=== PATIENT | male | born 1970 | race Two or more races ===

== ENCOUNTER 2024-01-18 13:38 | Outpatient (AMB) | payer OTHER, SELFPAY ==
--- NOTE | 2024-01-18 13:47 | HO.NEPHOV ---
Vital Signs 01/18/24 13:54 Height 6 ft 1 in Weight 199 lb BMI 26.3 BP 90/60 Blood Pressure Location Lt brachial Position Sitting Pulse 80 Pulse Source Pulse Oximeter Pulse Oximetry (%) 98 Oxygen Delivery Method Room Air Intake Visit Reasons: CKD and recurrent Gout on Allopurinol-Conf Labor Representative Required: No Accompanied by: Self / Same As Patient Allergies ibuprofen Allergy (Verified 01/14/24 12:26) Rash HPI Comments Details: I had the pleasure of seeing Brendan in consultation for chronic kidney disease. He has history of biventricular heart failure as well as some ischemic cardiomyopathy and diabetes mellitus with CKD. He has history of coronary artery bypass grafting in 2007 and has a defibrillator in place. He has CardioMEMS and is being closely followed up in the [facility] failure [facility]. He has been having recurrent attacks of gout needing prednisone. His blood sugar control is not optimal. His last serum creatinine was close to 2.4. His last A1c was 11.6 with a TSH of 9.98. His serum calcium, potassium and serum bicarbonate are within acceptable range. He is not sure what his recent serum uric acid level was. He is on Jardiance, torsemide, spironolactone, carvedilol as well as Entresto. He is not very compliant with a diet. He denies any nausea, vomiting, diarrhea, proximal nocturnal dyspnea, orthopnea, worsening pedal edema. He is bothered by his recurrent exacerbation of gout. Does not have any epistaxis, photosensitivity, skin rashes or orthostatic symptoms. 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 Biventricular heart failure Anxiety Surgical History (Updated 01/18/24 @ 13:50 by Crystal Welch MA) H/O elbow surgery Hx of CABG H/O colonoscopy Family History (Updated 01/18/24 @ 13:50 by Crystal Welch MA) Paternal Grandmother Cancer Maternal Grandmother Heart disease Father Diabetes Brother Diabetes Social History (Updated 01/18/24 @ 13:49 by Crystal Welch MA) Alcohol intake: current Comment: Socially Patient Tobacco Use Status: Former Tobacco user Review of Systems Const All systems reviewed & are unremarkable except as noted in HPI and below Physical Exam Vital Signs: Last Vital Signs Pulse 80 01/18/24 13:54 BP 90/60 01/18/24 13:54 Pulse Ox 98 01/18/24 13:54 Oxygen Delivery Method Room Air 01/18/24 13:54 BMI result Body Mass Index 26.3 Const General: comfortable and no acute distress Orientation/consciousness: patient oriented x3 HEENT Head: Yes normocephalic Mouth: Normal oral and palatal mucosa present Eyes EOM: EOMs intact bilaterally Neck Neck: Yes supple Resp Auscultation: clear to auscultation bilaterally Cardio Jugular venous distension: no JVD Rate: regular rate GI Palpation (GI): Soft to palpation Auscultation: normal bowel sounds General: Yes no CVA tenderness Back/Spine/Pelvis Back: no CVA tenderness Skin General skin exam: no rashes or lesions noted Neuro General: patient oriented x3 and moves all extremities Extrem General: Yes no pedal edema Results Reviewed Nephrology Results: No Data to Display Assessment & Plan Assessment & Plan (1) Type 2 diabetes mellitus with chronic kidney disease: Code(s): E11.22 - Type 2 diabetes mellitus with diabetic chronic kidney disease Category: Medical Qualifiers: Diabetes mellitus rodent exterminator insulin use: with custodial use Chronic kidney disease stage: stage 4 (severe) Qualified Code(s): E11.22 - Type 2 diabetes mellitus with diabetic chronic kidney disease; N18.4 - Chronic kidney disease, stage 4 (severe); Z79.4 - superintendent terminal (current) use of insulin (2) Chronic kidney disease (CKD) stage G3b/A3, moderately decreased glomerular filtration rate (GFR) between 30-44 mL/min/1.73 square meter and albuminuria creatinine ratio greater than 300 mg/g: Code(s): N18.32 - Chronic kidney disease, stage 3b Category: Medical Plan Brendan has a chronic kidney disease due to diabetic nephropathy. He also might have had loss of GFR due to cardiorenal syndrome when he had heart failure exacerbations. His serum creatinine is fairly stable now. His volume status is optimal as he is on diuretics, dose of which has been adjusted with the help CardioMEMS. He is not known to have any amyloidosis. He is tolerating allopurinol 100 mg once daily. He has got exacerbations are most likely due to poor GFR and diuretics. I have ordered repeat uric acid levels along with other blood work. We may have to start him on Uloric. He needs to keep his hemoglobin A1c under 7. All these have been explained in great detail. Time spent retrieving all his data from [facility], patient encounter and documentation included 61 minutes. Answered all questions and follow-up was given Orders: Orders Uric Acid 3 Months E11.22 - Type 2 diabetes mellitus with diabetic chronic kidney disease, N18.32 - Chronic kidney disease, stage 3b Vitamin D 25-OH Total 3 Months E11.22 - Type 2 diabetes mellitus with diabetic chronic kidney disease, N18.32 - Chronic kidney disease, stage 3b Immunofixation Pnl, Serum 3 Months E11.22 - Type 2 diabetes mellitus with diabetic chronic kidney disease, N18.32 - Chronic kidney disease, stage 3b Protein Creatinine Ratio, Ur 3 Months E11. - Type 2 diabetes mellitus with diabetic chronic kidney disease, N18.32 - Chronic kidney disease, stage 3b Immunofixation, Random Urine 3 Months E11.22 - Type 2 diabetes mellitus with diabetic chronic kidney disease, N18.32 - Chronic kidney disease, stage 3b Creatinine 3 Months E11.22 - Type 2 diabetes mellitus with diabetic chronic kidney disease, N18.32 - Chronic kidney disease, stage 3b Blood Urea Nitrogen 3 Months E11.22 - Type 2 diabetes mellitus with diabetic chronic kidney disease, N18.32 - Chronic kidney disease, stage 3b Electrolytes 3 Months E11.22 - Type 2 diabetes mellitus with diabetic chronic kidney disease, N18.32 - Chronic kidney disease, stage 3b Calcium 3 Months E11.22 - Type 2 diabetes mellitus with diabetic chronic kidney disease, N18.32 - Chronic kidney disease, stage 3b Parathyroid Hormone Intact 3 Months E11.22 - Type 2 diabetes mellitus with diabetic chronic kidney disease, N18.32 - Chronic kidney disease, stage 3b Coding Level of Care Code New Pt Level 5 (45514) Diagnoses Type 2 diabetes mellitus with stage 4 chronic kidney disease, with long-term current use of insulin E11.; N18.4; Z79.4 Diabetes mellitus rodent exterminator insulin use: with custodial use Chronic kidney disease stage: stage 4 (severe) Chronic kidney disease (CKD) stage G3b/A3, moderately decreased glomerular filtration rate (GFR) between 30-44 mL/min/1.73 square meter and albuminuria creatinine ratio greater than 300 mg/g N18.32
[2024-01-18 13:54] VITALS: BP 90/60; PULSE 80; O2SAT 98; BMI 26.3
== END 2024-01-18 14:34 | disposition home or self-care (01) ==
PROVIDERS: PCP Internal Medicine; Referring Provider Internal Medicine; Visit Provider Internal Medicine Nephrology
DX: E11.22 Type 2 diabetes mellitus with diabetic chronic kidney disease (principal); N18.4 Chronic kidney disease, stage 4 (severe); Z79.4 Long term (current) use of insulin; N18.32 Chronic kidney disease, stage 3b
CPT/HCPCS: 99205

== ENCOUNTER → 2024-01-18 13:38 | Outpatient (BNVA) | payer OTHER, SELFPAY | PROVIDERS: PCP Internal Medicine; Referring Provider Internal Medicine; Visit Provider Internal Medicine Nephrology | DX: E11.22 Type 2 diabetes mellitus with diabetic chronic kidney disease (principal); N18.4 Chronic kidney disease, stage 4 (severe); I50.9 Heart failure, unspecified; Z95.1 Presence of aortocoronary bypass graft; Z79.4 Long term (current) use of insulin; Z79.899 Other long term (current) drug therapy | CPT/HCPCS: 99202 ==

== ENCOUNTER 2024-04-18 09:46 | Outpatient (AMB) | payer OTHER, SELFPAY ==
--- NOTE | 2024-04-18 09:54 | HO.NEPHOV_ITS ---
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 He has history of biventricular heart failure as well as some ischemic cardiomyopathy and diabetes mellitus with CKD. He has history of coronary artery bypass grafting in 2007 and has a defibrillator in place. He has CardioMEMS and is being closely followed up in the Heart failure Clinic. He has been having recurrent attacks of gout needing prednisone. His blood sugar control is not optimal. His last serum creatinine was close to 2.4. His serum calcium, potassium and serum bicarbonate are within acceptable range. He is not sure what his recent serum uric acid level was. He is on Jardiance, torsemide, spironolactone, carvedilol as well as Entresto. He is not very compliant with a diet. He denies any nausea, vomiting, diarrhea, proximal nocturnal dyspnea, orthopnea, worsening pedal edema. He is bothered by his recurrent exacerbation of gout. Does not have any epistaxis, photosensitivity, skin rashes or orthostatic symptoms. 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 Biventricular heart failure Anxiety Surgical History H/O elbow surgery Hx of CABG H/O colonoscopy Family History Paternal Grandmother Cancer Maternal Grandmother Heart disease Father Diabetes Brother Diabetes Social History Alcohol intake: current Comment: Socially Patient Tobacco Use Status: Former Tobacco user Review of Systems Const All systems reviewed & are unremarkable except as noted in HPI and below Physical Exam Vital Signs: Last Vital Signs Pulse 64 04/18/24 09:57 BP 90/50 L 04/18/24 09:57 Pulse Ox 95 04/18/24 09:57 Oxygen Delivery Method Room Air 04/18/24 09:57 BMI result Body Mass Index 28.0 Const General: comfortable and no acute distress Orientation/consciousness: patient oriented x3 HEENT Head: Yes normocephalic Mouth: Normal oral and palatal mucosa present Eyes EOM: EOMs intact bilaterally Neck Neck: Yes supple Resp Auscultation: clear to auscultation bilaterally Cardio Jugular venous distension: no JVD Rate: regular rate GI Palpation (GI): Soft to palpation Auscultation: normal bowel sounds General: Yes no CVA tenderness Back/Spine/Pelvis Back: no CVA tenderness Skin General skin exam: no rashes or lesions noted Neuro General: patient oriented x3 and moves all extremities Extrem General: Yes no pedal edema Results Reviewed Nephrology Results: No Data to Display Assessment & Plan Assessment & Plan (1) Vitamin D deficiency: Code(s): E55.9 - Vitamin D deficiency, unspecified Category: Medical (2) Secondary hyperparathyroidism (of renal origin): Code(s): N25.81 - Secondary hyperparathyroidism of renal origin Category: Medical (3) Chronic kidney disease (CKD) stage G3b/A3, moderately decreased glomerular filtration rate (GFR) between 30-44 mL/min/1.73 square meter and albuminuria creatinine ratio greater than 300 mg/g: Code(s): N18.32 - Chronic kidney disease, stage 3b Category: Medical (4) Type 2 diabetes mellitus with chronic kidney disease: Code(s): E11.22 - Type 2 diabetes mellitus with diabetic chronic kidney disease Category: Medical Qualifiers: Diabetes mellitus shelter insulin use: with shelter use Chronic kidney disease stage: stage 4 (severe) Qualified Code(s): E11.22 - Type 2 diabetes mellitus with diabetic chronic kidney disease; N18.4 - Chronic kidney disease, stage 4 (severe); Z79.4 - group home (current) use of insulin Plan Brendan has a chronic kidney disease due to diabetic nephropathy. He also might have had loss of GFR due to cardiorenal syndrome when he had heart failure exacerbations. His serum creatinine is fairly stable now. I asked him to cut back torsemide one tablet every other day for a week and back to usual dose after that. His volume status is optimal as he is on diuretics, dose of which has been adjusted with the help CardioMEMS. He is not known to have any amyloidosis. I increased allopurinol to 200 mg once daily. He has got exacerbations are most likely due to poor GFR and diuretics. I have ordered repeat uric acid levels along with other blood work. We may have to start him on Uloric. He needs to keep his hemoglobin A1c under 7. I also started him on VItamin D [id number] U once a week. Answered all questions and follow-up was given Orders: Orders Creatinine 3 Months E11.22 - Type 2 diabetes mellitus with diabetic chronic kidney disease, E55.9 - Vitamin D deficiency, unspecified, N18.32 - Chronic kidney disease, stage 3b, N18.4 - Chronic kidney disease, stage 4 (severe), N25.81 - Secondary hyperparathyroidism of renal origin, Z79.4 - marine oil terminal superintendent (current) use of insulin Blood Urea Nitrogen 3 Months E11.22 - Type 2 diabetes mellitus with diabetic chronic kidney disease, E55.9 - Vitamin D deficiency, unspecified, N18.32 - Chronic kidney disease, stage 3b, N18.4 - Chronic kidney disease, stage 4 (severe), N25.81 - Secondary hyperparathyroidism of renal origin, Z79.4 - group home (current) use of insulin Electrolytes 3 Months E11.22 - Type 2 diabetes mellitus with diabetic chronic kidney disease, E55.9 - Vitamin D deficiency, unspecified, N18.32 - Chronic kidney disease, stage 3b, N18.4 - Chronic kidney disease, stage 4 (severe), N25.81 - Secondary hyperparathyroidism of renal origin, Z79.4 - marine oil terminal superintendent (current) use of insulin Medications: New cholecalciferol (vitamin D3) 1,250 mcg PO QWEEK 3 months 13 caps 1RF Changed From allopurinol 100 mg PO DAILY To allopurinol 200 mg (2 x 100 mg) PO DAILY 90 days 180 tabs 3RF Coding Level of Care Code Est Pt Level 4 (40101) Diagnoses Vitamin D deficiency E55.9 Secondary hyperparathyroidism (of renal origin) N25.81 Chronic kidney disease (CKD) stage G3b/A3, moderately decreased glomerular filtration rate (GFR) between 30-44 mL/min/1.73 square meter and albuminuria creatinine ratio greater than 300 mg/g N18.32 Type 2 diabetes mellitus with stage 4 chronic kidney disease, with long-term current use of insulin E11.22; N18.4; Z79.4 Diabetes mellitus shelter insulin use: with shelter use Chronic kidney disease stage: stage 4 (severe)
[2024-04-18 09:57] VITALS: BP 90/50; PULSE 64; O2SAT 95; BMI 28.0
--- OUTSIDE RECORDS SUMMARY | 2024-04-18 10:55 | XMS_ITS | Data Portability ---
Author Organization [employer], Pr in - [employer] Address [address] [place] [address] Care Team Providers Care Underwriting Account Representative Name Role Phone HIM CCA OTHER IVY CORTES Primary Care Provider Assessment Encounter Date Assessment Date Assessment LastModified by Organization Details LastModified Time 12/21/2023 12/21/2023 I provided real -time medical direction via phone for this encounter and was available for additional phone-based assistance as needed. I have reviewed and agree with the Assessment and Plan as documented by the Sueding Machine Tender. Patient given the opportunity to ask questions. Our service contacted for an assessment of: Gout As per above, patient developed a gout arthropathy attack left wrist. Signs and symptoms were very similar compared to a previous attack earlier this year. States he gets about 2 attacks per year. He has been chronically on Eliquis and did tolerate a lower dose of Toradol in the past and understands the risk and benefits of a 1 time dose. He has successfully taking prednisone as well. Per shared services manager on the scene, vital signs are stable and the patient is afebrile. Please see uploaded pictures. Impression: Gouty arthropathy with significant debility Plan: Toradol 15 mg x 1 and prednisone 40 mg x 1 today. I called in prednisone 40 mg daily for a total of 4 days to his pharmacy. Allergies: Reviewed and updated to include ibuprofen as the patient has been told to avoid this. He has tolerated Toradol as documented in my note as well as previous [facility] note. Patient understands risks and benefits of taking Toradol. Willing to accept risk given debility, pain and decreased quality of life PCP f/u: Would benefit from a more comprehensive plan for gout. We discussed the diagnostic uncertainty of home visits and the risk associated with this. In this case, the patient and I felt this to be an acceptable and reasonable amount of risk given the benefit of avoiding an ED visit. We discussed the need to seek care urgently/emergentl y in the setting of any new or worsening serious symptoms, particularly fever chills lightheadedness altered mental status [email or web address] Not available 12/21/2023 15:45:29 03/02/2024 03/02/2024 As noted, we honey e called to see this patient regarding concerns of gout flare. Evaluation in the field was performed by my shared services manager colleague, as noted above, I provided real-time direction and supervision for this visit. The evaluation revealed 53y M with gout and gout flare. Reports increased flares recently iso med changes for his cardiac diagoses. Impression: acute gout Plan: start prednisone, f/u w PCP for continued management and adjustment to gout medications Primary care, consider f/u in 3-5d for acute management of gout Disposition: We discussed the diagnostic uncertainty of home visits and the risk associated with this. In this case, the patient and I felt this to be an acceptable and reasonable amount of risk given the benefit of avoiding an ED visit. We discussed the need to seek care urgently/emergentl y in the setting of any new or worsening serious symptoms, particularly fever, worsening pain, swelling, falls atilhou Not available 03/02/2024 21:00:20 Plan of Treatment Reminders Order Date Submit Date Provider Last Modified By Organization Details Last Modified Time Details Appointments None recorded. Lab None recorded. Referral None recorded. Procedures None recorded. Surgeries None recorded. Imaging None recorded. Medication Orders senna 8.6 mg capsule 2022 023 [facility]/Pharmacy #[facility], [address] [place] [address], [id number], 3 16:59:20 Citroma oral solution 2022 023 [facility]/Pharmacy #[facility], [address] [place] [address], [id number], 3 16:59:21 prednisone 20 mg tablet 2023 024 [facility]/Pharmacy #[facility], [address] [place] [address], [id number], 4 19:18:30 prednisone 20 mg tablet 2023 024 [facility]/Pharmacy #[facility], [address] [place] [address], [id number], 4 19:18:28 ketorolac 30 mg/mL injection solution 2023 024 [facility]/Pharmacy #[facility], [address] [place] [address], [id number], 19:18:28 prednisone 20 mg tablet 2023 024 [facility]/Pharmacy #[facility], [address] [place] [address], [id number], 4 15:41:54 ketorolac 30 mg/mL injection solution [address]/Pharmacy #[facility], [address] [place] [address], [id number], 15:41:41 prednisone 20 mg tablet [address]/Pharmacy #[facility], [address] [place] [address], [id number], 15:41:41 prednisone 20 mg tablet 2023 024 [facility]/Pharmacy #[facility], [address] [place] [address], [id number], 20:59:04 prednisone 20 mg tablet 2023 024 [facility]/Pharmacy #[facility], [address] [place] [address], [id number], 21:00:37 Patient TargetsNo targets recorded. Patient InstructionsNo instructions recorded. Reason for Referral None Reported. Medical Equipment None Reported. Allergies Allergen ID Allergen Name Allergen Category Reaction Reaction Severity Criticality Documentation Date Start Date Code Code System Note Provider Name and Address Organization Details Recorded Time 6553 ibuprofen medicatio n Not available Not available Not available 12/21/2023 5640 RxNorm Not Available [facility] - production 10/29/202 4 03:41:38 Medications Name Sig Start Date Stop Date Status Note LastModified by Organization Details LastModified Time quetiapine 25 mg tablet TAKE 1-2 TABLET DIRECTED ONCE A DAY AT BEDTIME active Not Available Not Available N ot Available fluoxetine 40 mg capsule 2 TABLET DIRECTED DAILY active Not Available Not Available No t Available cyclobenzapr ine 10 mg tablet TAKE 1 TABLET BY MOUTH 3 TIMES A DAY FOR 7 DAYS NEEDED FOR MODERATE PAIN active Not Available Not Available No t Available metolazone 2.5 mg tablet TAKE 1 TABLET BY MOUTH ON 12/22/23. FUTURE DOSES ONLY WHEN INSTRUCTED BY DOCTOR active Not Available Not Available No t Available atorvastatin 40 mg tablet TAKE 1 TABLET BY MOUTH EVERY DAY active Not Available Not Available No t Available buspirone 5 mg tablet TAKE 1 TABLET BY MOUTH TWICE A DAY DIRECTED active Not Available Not Available No t Available metformin 500 mg tablet TAKE 1 TABLET BY MOUTH 2 TIMES A DAY BEFORE BREAKFAST AND DINNER active Not Available Not Available N ot Available carvedilol 25 mg tablet TAKE 1 TABLET BY MOUTH TWICE A DAY active Not Available Not Available No t Available clonidine HCl 0.1 mg tablet active Not Available Not Available Not Available carvedilol 12.5 mg tablet TAKE 2 TABLETS BY MOUTH TWICE A DAY active Not Available Not Available No t Available torsemide 20 mg tablet TAKE 1 TABLET BY MOUTH TWICE A DAY FOR 30 DAYS active Not Available Not Available No t Available clindamycin HCl 300 mg capsule TAKE 1 CAPSULE BY MOUTH EVERY 12 HOURS UNTIL FINISHED active Not Available Not Available No t Available trazodone 50 mg tablet 1 TABLET DIRECTED ONCE A DAY AT BEDTIME active Not Available Not Available N ot Available ibuprofen 800 mg tablet 1 TABLET EVERY 8 HOURS NEEDED FOR PAIN active Not Available Not Available No t Available amiodarone 200 mg tablet TAKE 1 TABLET BY MOUTH EVERY DAY active Not Available Not Available No t Available senna 8.6 mg tablet TAKE 2 TABLETS BY MOUTH DAILY AT BEDTIME NEEDED FOR CONSTIPATIO N active Not Available Not Available No t Available prednisone 20 mg tablet TAKE 2 TABS DAILY FOR FOUR DAYS active Not Available Not Available No t Available clonazepam 0.5 mg tablet 1 TABLET DAILY NEEDED DIRECTED active Not Available Not Available No t Available methylpredni solone 4 mg tablet TAKE 6 TABLETS ON DAY 1 DIRECTED ON PACKAGE AND DECREASE BY 1 TAB EACH DAY FOR A TOTAL OF 6 DAYS active Not Available Not Available No t Available acetaminophe n 300 mg-codeine 30 mg tablet TAKE 1 TABLET BY MOUTH EVERY 6 HOUR NEEDED FOR PAIN active Not Available Not Available No t Available allopurinol 100 mg tablet TAKE 1 TABLET BY MOUTH EVERY DAY active Not Available Not Available No t Available peg-electrol yte solution 420 gram oral solution MIX ALL DRINK 240 ML BY MOUTH EVERY 10 MINUTES active Not Available Not Available No t Available aspirin 81 mg tablet,delay ed release TAKE 1 TABLET BY MOUTH EVERY DAY active Not Available Not Available No t Available spironolacto ne 25 mg tablet TAKE 1 TABLET BY MOUTH EVERY DAY active Not Available Not Available No t Available levothyroxin e 25 mcg tablet TAKE 1 TABLET BY MOUTH DAILY, ON AN EMPTY STOMACH active Not Available Not Available No t Available lorazepam 0.5 mg tablet TAKE 1 TABLET BY MOUTH 2 TIMES A DAY FOR A WEEK THEN 1 TAB BY MOUTH DAILY FOR A WEEK active Not Available Not Available No t Available trazodone 100 mg tablet 1 TABLET DIRECTED ONCE A DAY AT BEDTIME active Not Available Not Available N ot Available buspirone 10 mg tablet TAKE 1 TABLET BY MOUTH TWICE A DAY DIRECTED active Not Available Not Available No t Available sertraline 25 mg tablet TAKE 1 TABLET BY MOUTH DAILY ADD TO SERTRALINE 50 MG active Not Available Not Available No t Available omeprazole 20 mg capsule,chinyere yed release TAKE 1 CAPSULE BY MOUTH EVERY MORNING active Not Available Not Available No t Available magnesium citrate oral solution DRINK 1 BOTTLE ONCE FOR CONSTIPATIO N active Not Available Not Available No t Available mirtazapine 15 mg tablet active Not Available Not Available Not Available lorazepam 1 mg tablet TAKE 1 TABLET BY MOUTH EVERY DAY DIRECTED active Not Available Not Available No t Available methylpredni solone 4 mg tablets in a dose pack TAKE 6 TABLETS ON DAY 1 DIRECTED ON PACKAGE AND DECREASE BY 1 TAB EACH DAY FOR A TOTAL OF 6 DAYS active Not Available Not Available No t Available hydroxyzine HCl 10 mg tablet TAKE 2 TABLETS BY MOUTH 4 TIMES A DAY NEEDED FOR ANXIETY active Not Available Not Available Not Available fluoxetine 20 mg capsule TAKE 3 CAPSULES BY MOUTH DAILY DIRECTED active Not Available Not Available Not Available sertraline 50 mg tablet TAKE 1 TABLET BY MOUTH EVERY DAY active Not Available Not Available No t Available buspirone 15 mg tablet 1 TABLET DIRECTED TWICE DAILY active Not Available Not Available Not Available oxycodone 5 mg tablet TAKE 1 TABLET BY MOUTH EVERY 4 HOURS NEEDED FOR SEVERE PAIN active Not Available Not Available Not Available Novolog FlexPen U-100 Insulin aspart 100 unit/mL (3 mL) subcutaneous INJECT 4-14 UNITS 3 TIMES A DAY BEFORE MEALS PER SLIDING SCALE E 11.9 active Not Available Not Available No t Available rosuvastatin 40 mg tablet TAKE 1 TABLET BY MOUTH EVERY DAY active Not Available Not Available No t Available senna 8.6 mg capsule Take 2 capsules twice a day by oral route. 2022 active Not Available Not Available Not Avai lable BD Ultra-Fine Mini Pen Needle 31 gauge x 05/21 active Not Available Not Available Not Available ramelteon 8 mg tablet 1 TABLET DIRECTED ONCE A DAY AT BEDTIME active Not Available Not Available N ot Available lubiprostone 24 mcg capsule TAKE 1 CAPSULE BY MOUTH TWICE A DAY active Not Available Not Available No t Available aripiprazole 2 mg tablet TAKE 1 TABLET BY MOUTH EVERY DAY DIRECTED active Not Available Not Available No t Available FreeStyle Lite Strips CHECK SUGARS 4 TIMES A DAY active Not Available Not Available Not Available ketorolac 30 mg/mL injection solution Inject 15 mg by intravenous route. 2023 active Not Available Not Available Not Avai lable Linzess 145 mcg capsule TAKE 1 CAPSULE BY MOUTH EVERY DAY active Not Available Not Available No t Available Linzess 290 mcg capsule TAKE 1 CAPSULE BY MOUTH EVERY DAY active Not Available Not Available No t Available Eliquis 5 mg tablet TAKE 1 TABLET BY MOUTH TWICE A DAY active Not Available Not Available No t Available Jardiance 25 mg tablet TAKE 1 TABLET BY MOUTH EVERY DAY IN THE MORNING active Not Available Not Available No t Available Entresto 97 mg-103 mg tablet TAKE 1 TABLET BY MOUTH TWICE A DAY active Not Available Not Available No t Available Tresiba FlexTouch U-200 insulin 200 unit/mL (3 mL) subcutaneous pen 44 UNITS SUBCUTANEOU S INFUSION DAILY active Not Available Not Available No t Available Tresiba FlexTouch U-100 insulin 100 unit/mL (3 mL) subcutaneous pen active Not Available Not Available Not Available FreeStyle Jaya 2 Sensor kit USED TO MONITOR BLOOD GLUCOSE LEVELS CONTINUOUSL Y, CHANGE EVERY 14 DAYS active Not Available Not Available No t Available FreeStyle Jaya 2 [place] USED TO MONITOR BLOOD GLUCOSE LEVELS CONTINUOUSL Y active Not Available Not Available No t Available Vitals Date Recorded Body temperature Heart rate Respiratory rate Oxygen saturation Oxygen saturation in Arterial blood by Pulse oximetry Systolic blood pressure Provider Name and Address Organization Details Last Updated DateTime 3 98.6 [degF] 64 /min 18 /min 100 % 100 % 110 mm[Hg] Not Available [employer] - production 3 16:50:06 Date Recorded Oxygen saturation Oxygen saturation in Arterial blood by Pulse oximetry Body weight Respiratory rate Body temperature Heart rate Systolic blood pressure Diastolic blood pressure Provider Name and Address Organization Details Last Updated DateTime 4 97 % 97 % 34974.3 2 g 16 /min 97.8 [degF] 96 /min 122 mm[Hg] 80 mm[Hg] Not Available [employer] - production 4 17:23:59 Date Recorded Heart rate Respiratory rate Body temperature Oxygen saturation Oxygen saturation in Arterial blood by Pulse oximetry Systolic blood pressure Diastolic blood pressure Provider Name and Address Organization Details Last Updated DateTime 4 95 /min 6 /min 98.1 [degF] 97 % 97 % 122 mm[Hg] 78 mm[Hg] Not Available [employer] 4 15:10:44 Date Recorded Oxygen saturation Oxygen saturation in Arterial blood by Pulse oximetry Body temperature Body height Respiratory rate Heart rate Body weight Systolic blood pressure Diastolic blood pressure Provider Name and Address Organization Details Last Updated DateTime 4 99 % 99 % 98.5 [degF] 185.42 cm 16 /min 75 /min 71563.4 g 100 mm[Hg] 70 mm[Hg] Not Available [employer] 4 20:55:07 Social History None recorded. Functional Status None recorded. Mental Status None recorded. Family History Nothing Reported. Medical History No medical history recorded. Past Encounters Encounter ID Performer Location Encounter Start Date Encounter Closed Date Diagnosis/Indication Diagnosis SNOMED-CT Code Diagnosis ICD10 Code Diagnosis Note [id number] Karen Ying MD [facility] [address] [place] [id number] 02/13/2023 16:50:04 02/15/2023 17:15:01 Dyspnea [id number] R06.00 Evaluation in the field was performed by my shared services manager colleague, as noted above, I provided real-time direction and supervisio n for this visit. 52yo M with PMHx T2DM, IBS/consti pation, AFib (on apixaban), CKD (b/l Cr 2.3 per records at home), CHF s/p cardioMEMS p/w difficulty taking deep breath, thirst, malaise and constipati on (no N/V, passing flatus). Endorses cardiologi st told him last week to increase diuretics x 2 days but he did x 4 days and then symptoms began. VS all wnl. Exam notable for mild abd distension but no TTP, dry mucous membranes, lungs CTAB and no edema. Labs notable for BUN 45 Cr 2.4 K 4.2 Hgb 16. Suspect mild overdiures is (w/o SHERWIN) leading to constipati on. Recommend to liberalize fluid by 500cc day, call cardiologi st to get cardioMEMs reading, and start senna BID and mag citrate x1 for constipati on (reviewed that iso CKD would not recommend frequent use but x1 acceptable ). Low suspicion for other pulm pathology but if no improvemen t after BM encourage re-eval. Care team: for future visits would be helpful to have cardioMEMs goal PA pressure and contact informatio n for cardiology (minimal documentat ion visible in Sara). We discussed the diagnostic uncertaint y of home visits and the risk associated with this. In this case, the patient and I felt this to be an acceptable and reasonable amount of risk given the benefit of avoiding an ED visit. We discussed the need to seek care urgently/e mergently in the setting of any new or worsening serious symptoms, shortness of breath, cough, chest pain, fever. [id number] Matt Shaffer MD [facility] [address] [place] [phone] 10/06/2023 17:23:54 10/07/2023 06:35:22 Primary gout [id number] M10.00 As noted, we were called to see this patient regarding concerns of possible gout Evaluation in the field was performed by my shared services manager colleague, as noted above, I provided real-time direction and supervisio n for this visit. The evaluation revealed swelling and reduced range of motion of the ankle consistent with his previous symptoms of gout. No trauma. No fevers, chills to suggest septic arthritis. Impression :Gout Plan:Ketor olac, steroid burst Primary care, considerrh eumatology referral if persistent Dispositio n: We discussed the diagnostic uncertaint y of home visits and the risk associated with this. In this case, the patient and I felt this to be an acceptable and reasonable amount of risk given the benefit of avoiding an ED visit. We discussed the need to seek care urgently/e mergently in the setting of any new or worsening serious symptoms, particular ly worsening pain, swelling, fevers, neurologic al symptoms. [id number] Odette Hoffman MD [facility] [address] [place] [phone] 12/21/2023 15:10:32 12/21/2023 18:46:14 Gouty arthropathy [id number] M10.09 [id number] Chery Armstrong MD [facility] [address] [place] [phone] 03/02/2024 20:55:02 03/03/2024 12:36:45 Gout [id number] M10.9 Health Concerns Section Related Observation LastModified by Organization Detai ls LastModified Time None Recorded Concern Status LastModified by Organization Details LastModified Time None Recorded Advance Directives Directive None Recorded Payers Encounter Date Sequence Insurance Name Policy Number Policy Ramos Covered Member ID Ramos Member ID Guarantor Name 02/13/2023 1 [employer] [facility] [employer] - DOS ON OR AFTER 2022 - DUAL ELIGIBLE - HALFWAY OPTIONS AND ONE CARE (MEDICARE REPLACEMENT/ADV ANTAGE - HMO) Brendan Ortega [id number] Brendan Ortega 10/06/2023 1 [employer] [facility] [employer] - DOS ON OR AFTER 2022 - DUAL ELIGIBLE - HALFWAY OPTIONS AND ONE CARE (MEDICARE REPLACEMENT/ADV ANTAGE - HMO) Brendan Ortega [id number] Brendan Otrega 12/21/2023 1 [employer] [facility] [employer] - DOS ON OR AFTER 2022 - DUAL ELIGIBLE - HALFWAY OPTIONS AND ONE CARE (MEDICARE REPLACEMENT/ADV ANTAGE - HMO) Brendan Ortega [id number] Brendan Ortega 03/02/2024 1 [employer] [facility] [employer] - DOS ON OR AFTER 2022 - DUAL ELIGIBLE - HALFWAY OPTIONS AND ONE CARE (MEDICARE REPLACEMENT/ADV ANTAGE - HMO) Brendan Ortega [id number] Brendan Ortega Notes Date Note Type Note Provider Name and Address Organization Details Recorded Time 02/13/2023 text/html [facility] Nursing Assessment: Chief Complaints: Shortness of Breath/Dyspnea, Pain PMH: CHF, Diabetes, Other Allergies: Ibuprofen Comments: Shortness of breath over the past few days. Worse while sitting or laying down. Reports stomach and leg cramping. Increased thirst. Reports good fluid intake. No weight gain. No cough or fever. ................... ................... ................... ................... ................... ................... ................... ........ Sueding Machine Tender Note From Gisella Patterson: Community Sueding Machine Tender Trev Patterson CCA1 dispatched to [facility] for a 52 yom C/O SOB X3 days. Upon arrival, the pt was ambulatory, ESQUEDA X4, in no apparent distress. Skin warm pink and dry, no tachypnea or dyspnea. He stated that he had some fluid overload in the past week, and coordinated w/ his Bruise Trimmer using his cardio mems device, and was instructed to take diuretics Wednesday and Wednesday. He stated he also took diuretics on Wednesday and Wednesday (that day), and that he was feeling thirsty and having calf cramps. He reported that he also suffered from constipation, and hadn't had a BM in over 3 days, even after an enema. He stated that he was hungry but reluctant to eat, and that he was passing gas. He stated that he felt as if he could not take a full breath, but denied SOB. His abdomen was not rigid or tender, but did feel stiff and pt stated discomfort on palpation. He denied LANDAVERDE, dizziness, cough, sore throat, fever, CP, N/V/D, or urinary S/S. No pedal edema. [facility] consulted; BMP in [facility]. Pt was given rx for senna and magnesium citrate w/ instructions. He was instructed to hold his diuretics, increase his fluid intake slightly, and contact his Bruise Trimmer on Wednesday. Red flags discussed. ................... ................... ................... ................... ................... ................... ................... ........ Disposition: Fulfilled Karen Ying MD [address] [facility],[address], [place], [phone], [employer] 02/13/2023 19:40:08 10/06/2023 text/html HPI: Member called CRU, c/o rt ankle pain, redness and swelling. Member reports onset of sx's 3 days. Member has taken Tylenol with no effect. Member denies fever, calf or thigh pain. He reports difficulty walking d/t pain. PMH includes but not limited to, CAD, ICD, SOBOE, chronic gout, oil heaterman use of anticoagulants, long oral hypoglycemic drugs. Member is requesting home visit for evaluation. ................... ................... ................... ................... ................... ................... ................... ........ [facility] Nurse Triage Notes (Salvador Rodriguez): Chief Complaints: Edema PMH: Heart Disease, CHF, Diabetes Allergies: Ibuprofen Comments: Reviewed HPI ................... ................... ................... ................... ................... ................... ................... ........ Sueding Machine Tender Note From Juarez Rust: Pt co right ankle swelling pain. Pt sts history of gout and believes it? s a flare up. Pt denies injury or falls. Pt denies CP sob NVD or fever. Baseline vitals assessed, pics uploaded, ankle has slight bruising with some swelling. No pitting. Not hot to touch or red in color. No bleeding or signs of trauma, afebrile. C contacted and rx for prednisone called in and 40mg prednisone PO, toradol IM 15mg. Pt education on signs indicating the ER. Pt advised to follow up with pcp. Sueding Machine Tender Allergies: Ibuprofen ................... ................... ................... ................... ................... ................... ................... ........ Disposition: Fulfilled Matt Shaffer MD [address] [facility],[address], [place], [phone], [employer] 10/06/2023 19:18:43 12/21/2023 text/html [facility] Nurse Triage Notes (Irma Cheng): Reason For Request: Pain Chief Complaints: Pain PMH: CHF, Diabetes, Heart Disease Allergies: Ibuprofen Pain Assessment: Level 8 out of 10 Comments: Field Map Technician verified the member's name//address and phone number. Member is a 53 yr old male PMH >gout/ CHF / DM ( insulin) BS checked / ACID Allergies >Ibuprofen , . He has pain in his right wrist elbow. He is unable to grab things. The area is swollen and painful. He has the area wrapped and has tried ice and heat. He has tried tylenol. 8/ pain , since , he has seen [facility] in the past and gotten prednisone. He has CHF , on torsemide. He is on eliquis, for VTACH Education provided on the response time and the member was advised to monitor reported s/s and seek emergency treatment if needed ................... ................... ................... ................... ................... ................... ................... ........ Sueding Machine Tender Note From Kobe Rader: Dispatched to above address for L hand pain. On arrival patient 53 y/o M, found sitting on couch, AOX4, airway patent, speaking in full sentences, good color, in no apparent distress, dontrell wrap on L forearm. Patient states he is having pain and swelling to L forearm from elbow to finger tips, pain mostly in L index finger. Patients vital signs checked. Secondary assessment, pupils PERRL, airway patent, no JVD, trachea midline, equal chest rise and fall, lungs clear all aparicio, abdomen soft non tender, no signs of trauma, good radial pulse, skin pink warm and dry, dontrell wrap removed swelling to L hand wrist and fingers pain to palpation normal temp, CMS intact, painful limited ROM to L hand. Patient reports pain is 7/10, has been going on for about 5 days, has been getting worse, feels like previous episodes of gout flair ups, states in the past has gotten Toradol and prednisone with good relief. [facility] contacted, spoke with Dr. Hoffman, advised of patient complaints and exam findings. [facility] orders 40mg Prednisone PO and 15mg Toradol IV, will prescribe prednisone and recommends follow up with PCP. Patient administered Prednisone and Toradol. Patient will follow up with PCP. Patient has no additional questions or concerns at this time. SC8 clear. EOR. ................... ................... ................... ................... ................... ................... ................... ........ Disposition: Fulfilled Odette Hfofman MD [address] [place] [address],[address] [facility], [place], [address], [employer] 12/21/2023 15:45:35 03/02/2024 text/html CRC Nurse Triage Notes (Lainey Pitts - RN): Reason For Request: Pt is experiencing knee pain, concerned for a gout flare up Chief Complaints: Joint pain/swelling PMH: Congestive Heart Failure, Coronary Artery Disease, Gout, Diabetes Mellitus Type 2 Pain Assessment: Level 8 out of 10 Comments: Patient has right knee pain that started on Wednesday evening. Pain is getting progressively worse. Knee is swollen. Takes Allopurinol daily for gout. Patient has been evaluated by [facility] in the past for gout flare up. No trauma to joint. Took Tylenol for pain today. Rates pain 10/15. Chery Armstrong MD [address] [place] [address],[address], [place], [address], [email or web address] 03/02/2024 22:07:54
--- OUTSIDE RECORDS SUMMARY | 2024-04-18 10:55 | XMS_ITS | Encounter Summary ---
Author Organization [facility], Address [address] [place] [address] Phone Care Team Providers Care Tax Services Specialist Name Role Phone Radha Win MD Primary Care Provider Encounter Details Date Type Department Care Team (Late st Contact Info) Description 10/05/2022 Documentation Only [facility], [address] [place] [address] Radha Win MD [address] Social History Tobacco Use Types Packs/Day Years Used Date Smoking Tobacco: Never Assessed Sex and Gender Information Value Date Recorded Sex Assigned at Not on file Legal Sex Male 3:44 PM EDT Gender Identity Not on file Sexual Orientation Not on file documented as of this encounter Plan of Treatment Not on file documented as of this encounter Visit Diagnoses Not on filedocumented in this encounter Care Teams Tax Services Specialist Relationship Specialty Start Date End Date Radha Win MD [address] [place] [address] [address] [place] [address] PCP - General Internal Medicine 10/02/22 documented as of this encounter
--- OUTSIDE RECORDS SUMMARY | 2024-04-18 10:55 | XMS_ITS | Clinical Summary ---
Author Organization [facility], Address [address] [place] [address] [place] [address] Phone Care Team Providers Care Skoog Operator Name Role Phone Radha Win MD Primary Care Provider Allergies Active Allergy Reactions Criticality Noted Date Comments Ibuprofen Rash Low 07/08/2022 Medications acetaminophen-c odeine (TYLENOL with CODEINE #3) 300-30 MG per tablet TAKE 1 TABLET BY MOUTH EVERY 6 HOUR NEEDED FOR PAIN 11/11/2022 Active allopurinol (ZYLOPRIM) 100 MG tablet 11/14/2022 Active amiodarone (PACERONE) 200 MG tablet TAKE 2 TABLETS DAILY UNTIL Feb AND THEN 1 TABLET DAILY THEREAFTER. 11/11/2022 Active Eliquis 5 MG tablet 11/17/2022 Active atorvastatin (LIPITOR) 40 MG tablet Take 1 tablet by mouth 1 (one) time each day Active busPIRone (BUSPAR) 5 MG tablet Active carvedilol (COREG) 25 MG tablet Active clindamycin (CLEOCIN) 300 MG capsule TAKE 1 CAPSULE BY MOUTH EVERY 12 HOURS UNTIL FINISHED 11/11/2022 Active cyclobenzaprine (FLEXERIL) 5 MG tablet TAKE 1 TABLET BY MOUTH THREE TIMES A DAY FOR 10 DAYS NEEDED FOR PAIN Active Jardiance 25 MG tablet Take by mouth 1 (one) time each day in the morning 10/08/2022 Active furosemide (LASIX) 20 MG tablet Take 1 tablet by mouth Active ibuprofen (ADVIL,MOTRIN) 800 MG tablet 1 TABLET EVERY 8 HOURS NEEDED FOR PAIN 11/11/2022 Active Active Problems Problem Noted Date Diagnosed Date Chronic kidney disease 07/06/2022 Coronary arteriosclerosis 07/06/20222022 History of coronary artery bypass grafting 07/0611/20/2022 Type 2 diabetes mellitus 07/16/2020 023 Immunizations Name Administration Dates Next Due Pfizer SARS-COV-2 12/17/2020,06/06/2020,05/17/19 21 Social History Tobacco Use Types Packs/Day Years Used Date Smoking Tobacco: Never Assessed Sex and Gender Information Value Date Recorded Sex Assigned at Not on file Legal Sex Male 3:44 PM EDT Gender Identity Not on file Sexual Orientation Not on file Plan of Treatment Health Maintenance Due Date Last Done Comments Pneumococcal Vaccine: Pediat rics (0 to 5 Years) and At-Risk Patients (6 to 64 Years) (1 of 2 - PCV) 1975 Hepatitis B Vaccine (1 of 3 - 19+ 3-dose series) 04/05 Colorectal Cancer Screening: Annual FOBT 2018 Colorectal Cancer Screening: Colonoscopy 2018 Colorectal Cancer Screening: Sigmoidoscopy 2018 Diabetes: Ophthalmology Exam 10/07/2022 Diabetes: Pedal Pulse Checked 10/07/2022 Diabetes: Sensory Foot Exam 10/07/2022 Diabetes: Visual Foot Exam 10/07/2022 Diabetes: Hemoglobin A1C 10/13/2022 07/13/2022 Influenza Vaccine (#1) 2023 Insurance , [address] [place] [address] [employer] ([id number]) YESIKA GUAMAN [id number] Care Teams Skoog Operator Relationship Specialty Start Date End Date Radha Win MD [address] [facility] [address] [place] [address] PCP - General Internal Medicine 10/02/22
== END 2024-04-18 10:31 | disposition home or self-care (01) ==
PROVIDERS: PCP Internal Medicine; Visit Provider Internal Medicine Nephrology
DX: E55.9 Vitamin D deficiency, unspecified (principal); N25.81 Secondary hyperparathyroidism of renal origin; E11.22 Type 2 diabetes mellitus with diabetic chronic kidney disease; N18.32 Chronic kidney disease, stage 3b; N18.4 Chronic kidney disease, stage 4 (severe); Z79.4 Long term (current) use of insulin
CPT/HCPCS: 99214

== ENCOUNTER → 2024-04-18 09:46 | Outpatient (BNVA) | payer OTHER, SELFPAY | PROVIDERS: PCP Internal Medicine; Visit Provider Internal Medicine Nephrology | DX: E11.22 Type 2 diabetes mellitus with diabetic chronic kidney disease (principal); N18.4 Chronic kidney disease, stage 4 (severe); N25.81 Secondary hyperparathyroidism of renal origin; E55.9 Vitamin D deficiency, unspecified; Z79.4 Long term (current) use of insulin | CPT/HCPCS: 99212 ==